=== PATIENT | female | born 2000 | race Caucasian/White ===

== ENCOUNTER 2024-12-28 08:16 | Emergency (ER) | payer OTHER ==
[~2024-12-28] VITALS: Ht 162.6 cm; Wt 74.5 kg
[2024-12-28 08:39] VITALS: BP 109/68; PULSE 86; RESP 18; TEMP 98.4; O2SAT 98
[2024-12-28 09:11] LABS: APPEARANCE,URINE CLEAR (CLEAR); GLUCOSE, URINE (UA) NEGATIVE (NEGATIVE); LEUKOCYTE ESTERASE ,URINE NEGATIVE (NEGATIVE); NITRATE,URINE NEGATIVE (NEGATIVE); OCCULT BLOOD,URINE NEGATIVE (NEGATIVE); SPECIFIC GRAVITIY, URINE 1.033 (1.003-1.030)
[2024-12-28 09:15] LABS: HCG,QUAL URINE NEGATIVE (NEGATIVE)
== END 2024-12-28 10:19 | disposition home or self-care (01) ==
LOC: EMS 08:16
DX: R21 Rash and other nonspecific skin eruption (principal)
CPT/HCPCS: 81003; 84703; 99283